=== PATIENT | male | born 1985 | race Native Hawaiian/Other Pacific Islander ===

== ENCOUNTER 2024-02-14 08:50 | Outpatient (CLI) | payer OTHER, SELFPAY ==
--- OUTSIDE RECORDS SUMMARY | 2024-02-16 03:57 | XMS_ITS | Referral Summary ---
Author Organization [place] Address [address] [place] [id number] Care Team Providers Care Senior Software Development Manager Name Role Phone No Ref-Primary, Physician Primary Care Provider Allergies No known active allergies Medications Medication Sig Dispensed Refills Start Date End Date Status oxyCODONE (ROXICODONE) 5 MG tablet Take 1 tablet (5 mg) by mouth every 6 hours as needed for pain 10 tablet 08/09/2019 Active predniSONE (DELTASONE) 20 MG tablet Take two tablets (= 40mg) each day for 5 (five) days 10 tablet 08/09/2019 Active Active Problems Problem Noted Date Diagnosed Date Shoulder Injury Overview: Created by Conversion Social History Tobacco Use Types Packs/Day Years Used Date Smoking Tobacco: Former Comments:Quit in 2013. Sex and Gender Information Value Date Recorded Sex Assigned at Not on file Gender Identity Not on file Sexual Orientation Not on file Last Filed Vital Signs Vital Sign Reading Time Taken Comments Blood Pressure 142/87 08/09/2019 2:15 PM CDT Pulse 66 08/09/2019 2:15 PM CDT Temperature 36.6 ??C (97.9 ??F) 08/09/2019 12:47 PM C DT Respiratory Rate 20 08/09/2019 12:47 PM CDT Oxygen Saturation 96% 08/09/2019 2:15 PM CDT Inhaled Oxygen Concentration - - Weight 129.3 kg (285 lb) 08/09/2019 12:47 PM CDT Height 190.5 cm (6' 3) 10/09/2015 12:30 PM CDT Body Mass Index 35.62 10/09/2015 12:30 PM CDT Plan of Treatment Not on file Care Teams Senior Software Development Manager Relationship Specialty Start Date End Date No Ref-Primary, Physician PCP - General 08/09/19
--- OUTSIDE RECORDS SUMMARY | 2024-02-16 03:57 | XMS_ITS | Clinical Summary ---
Author Organization [place] Address [address] [place] [id number] Care Team Providers Care Axle Turner Name Role Phone No Ref-Primary, Physician Primary [...] of Treatment Not on file Care Teams Axle Turner Relationship Specialty Start Date End Date No Ref-Primary, Physician PCP - General 08/09/19
== END 2024-02-14 08:51 | disposition home or self-care (01) ==
LOC: NFLDREF 02-16 03:56
PROVIDERS: PCP Registered Nurse; Referring Provider Registered Nurse; Visit Provider Registered Nurse
DX: Z00.00 Encounter for general adult medical examination without abnormal findings (principal); Z13.6 Encounter for screening for cardiovascular disorders; Z13.1 Encounter for screening for diabetes mellitus
CPT/HCPCS: 80061; 82947

== ENCOUNTER 2024-02-27 06:15 | Day surgery (SDC) | payer OTHER, SELFPAY ==
[2024-02-27] VITALS (7 sets, daily range): BP systolic 130–151; BP diastolic 81–102; PULSE 64–73; RESP 16; TEMP 36.4–36.5; O2SAT 95–96; BMI 38.1
--- OUTSIDE RECORDS SUMMARY | 2024-02-27 06:17 | XMS_ITS | Clinical Summary ---
Author Organization [place] Address [address] [place] [id number] Care Team Providers Care Automation Test Developer Name Role Phone No Ref-Primary, Physician Primary [...] of Treatment Not on file Care Teams Automation Test Developer Relationship Specialty Start Date End Date No Ref-Primary, Physician PCP - General 08/09/19
--- OUTSIDE RECORDS SUMMARY | 2024-02-27 06:18 | XMS_ITS | Referral Summary ---
Author Organization [place] Address [address] [place] [id number] Care Team Providers Care Crown Perforator Operator Name Role Phone No Ref-Primary, Physician Primary [...] of Treatment Not on file Care Teams Crown Perforator Operator Relationship Specialty Start Date End Date No Ref-Primary, Physician PCP - General 08/09/19
[2024-02-27] MEDS: LACTATED RINGERS 1000 ML 1,000 ML 100 ML IV (07:00)
[2024-02-27] MEDS: SODIUM CHLORIDE 0.9 % (FLUSH) 10 ML SYRINGE IVF (07:00)
--- NOTE | 2024-02-27 07:33 | W.PM.H&PU ---
History & Physical Update History & Physical Update H&P Reviewed and patient assessed: No changes noted
[2024-02-27] MEDS: CEFAZOLIN 2 GM INJ IVP (07:40)
[2024-02-27] MEDS: LIDOCAINE 1%-EPI 1:100,000 20 ML INFILTRATI (08:27)
[2024-02-27] MEDS: BUPIVACAINE 0.25% 30 ML INJECTION (08:27)
--- NOTE | 2024-02-27 08:41 | PM.GSPRC ---
Operative Note Date of procedure: 02/27/24 Pre-op diagnosis: Left parietal scalp mass Post-op diagnosis: Same Type of Procedure: Excision of left scalp mass Indications: Patient is a 30-year-old male who presented to clinic with an enlarging mass just behind his ear. Different treatment options were reviewed, please see consultation note for full discussion. Risks and benefits of operative intervention were discussed at length with the patient. Risks included but was not limited to: Bleeding, infection, risk of damage to surrounding structures, possible need for additional procedures, risk of recurrence and postoperative complications such as pneumonia, pulmonary emboli or KS. All questions and concerns were addressed with the patient agreeing to proceed. Procedure Description: After discussing the risks and benefits of the procedure, the patient signed informed consent.? The operative site was marked and the patient was brought to the operating room and placed on the operating table in supine position.? Care was taken to pad the patient's pressure points.?? The patient was then given sedation by anesthesia.?? The operative site was then prepped and draped in the usual sterile fashion.? A time-out was then performed. A transverse incision was made directly over the mass. Using cautery dissection was carried down through subcutaneous tissues to a welling capsulated mass. There was a thick fibrous capsule. This was circumferentially dissected free. The capsule was partially attached to the underlying muscle. The mass was then removed in its entirety. It measured 4 cm in size. The specimen was passed off for pathology. The incision was then irrigated with saline. Hemostasis was assured with cautery. The incision measured 4 cm and was closed in layers of interrupted 3 0 Vicryl and running 4-0 Monocryl stitch. Dermabond was placed over top. Sterile dressings were then applied. ? The patient was then woken and transported to the recovery area in stable condition. ? The patient tolerated the procedure well. Findings: 4 cm left scalp mass Anesthesia: MAC and local Surgeon: Kaia Nur MD Estimated blood loss (mL): 5 Additional Specimen Information: Left scalp mass Condition: stable Disposition: same day
--- NOTE | 2024-02-27 08:47 | W.ANESCHARGE ---
Anesthesia Charges Start Date/Time Anesthesia Start Date: 02/27/24 Anesthesia Start Time: 07:29 Stop Date/Time Anesthesia Stop Date: 02/27/24 Anesthesia Stop Time: 08:49
[2024-02-27] MEDS: HYDROCODONE-ACETAMIN 5-325 MG 1 TAB PO (09:27)
--- NOTE | 2024-02-27 13:02 | W.ANESCHARGE ---
Anesthesia Charges Start Date/Time Anesthesia Start Date: 02/27/24 Anesthesia Start Time: 07:29 Stop Date/Time Anesthesia Stop Date: 02/27/24 Anesthesia Stop Time: 08:49
== END 2024-02-27 10:25 | disposition home or self-care (01) ==
PROVIDERS: PCP Registered Nurse; Visit Provider Surgery
PROC: (CPT 21012; principal; 2024-02-27 07:30)
DX: D17.0 Benign lipomatous neoplasm of skin and subcutaneous tissue of head, face and neck (principal)
CPT/HCPCS: 21012; 00300; 88304; A9270; J0665; J0690; J2250; J2704; J3010; J3490; J7120

== ENCOUNTER 2025-05-24 19:41 | Outpatient (CLI) | payer OTHER, SELFPAY ==
--- NOTE | 2025-06-08 10:52 | W.PM.SLEEP ---
Sleep Study Details Details Interpreting Provider: Thais Date of Sleep Study: 05/24/25 Sleep Study Details: STUDY TYPE:? Home unattended ? BMI:? 40 ORDERING PROVIDER:? Thais INDICATION:? Concern for sleep apnea ? SLEEP SUMMARY:? 575 minutes monitored RESPIRATORY SUMMARY:? AHI 55.7, low oxygen 71 9.1% of study oxygen less than 90% Snoring 91.4% PERIODIC LIMB MOVEMENTS OF SLEEP:? Not recorded CARDIAC:? Range 53-116, mean 69.6 beats per minute IMPRESSION:? Severe obstructive sleep apnea, elevated BMI. RECOMMENDATION: CPAP would be the recommended treatment. Weight loss is also recommended.
== END 2025-05-24 19:42 | disposition home or self-care (01) ==
LOC: SLEEP 19:42
PROVIDERS: Visit Provider Otolaryngology
DX: G47.33 Obstructive sleep apnea (adult) (pediatric) (principal)
CPT/HCPCS: 95806